=== PATIENT | female | born 1965 | race African-American/Black ===

== ENCOUNTER 2020-07-27 11:44 | Emergency (ER) | payer OTHER ==
[~2020-07-27] VITALS: Ht 182.9 cm; Wt 79.4 kg
[~2020-07-27 11:44] MED LIST: ACETAMINOPHEN-1 EAC1 ORAL; CEPHALEXIN500 MG ORAL; IBU800 MG PO; OFLOXACIN10 ML OP
[2020-07-27 11:57] VITALS: BP 152/98
--- NOTE | 2020-07-27 12:00 | NUR ---
ED Nurse Note: Patient walked in to ER requesting for a head x ray to r/o fracture. Patient missed a step and fell on her head yesterday around 5 pm. Patient presented with swollen left eye, brused. Patient AAO x4, VSS at this time, walks with steady gait.
[2020-07-27 12:20] VITALS: BP 152/98
--- NOTE | 2020-07-27 12:20 | NUR ---
ER DISCHARGE NOTE: Patient is cleared to be discharged per ERMD, pt is aox4, on room air, with stable vital signs. pt was given dc and follow up instructions, pt was able to verbalize understanding, pt id band removed without complications. pt is able to ambulate with steady gait. pt took all belongings.
--- NOTE | 2020-07-27 13:07 | Emergency Room Report ---
History of Present Illness General Chief Complaint: Head Injury Source: Patient Present Illness HPI 55-year-old female presents the ED for evaluation. Was seen here yesterday for a fall and head injury. States that she was told to come back to get another x- ray of her head. Pain is dull, 6 out of 10, nonradiating. Got stitches as well yesterday. Denies photophobia or blurry vision. No other aggravating relieving factors. Denies any other associated symptoms Allergies: Coded Allergies: ASPIRIN (Verified Allergy, Unknown, 07/26/20) COVID-19 Screening Contact w/high risk pt: No Experienced COVID-19 symptoms?: No COVID-19 Testing performed B[employer] LEADPERSON: No Patient History Past Medical History: asthma Past Surgical History: none Pertinent Family History: none Social History: Denies: smoking, alcohol use, drug use Last Menstrual Period: na Now: No Immunizations: UTD Reviewed Nursing Documentation: PMH: Agreed; PSxH: Agreed Nursing Documentation-PMH Past Medical History: No History, Except For Hx Asthma: Yes Review of Systems All Other Systems: negative except mentioned in HPI Physical Exam Vital Signs Date Time Temp Pulse Resp B/P (MAP) Pulse Ox O2 Delivery O2 Flow Rate FiO2 07/27/20 11:48 98.1 91 18 152/98 (116) 96 Room Air Sp02 EP Interpretation: reviewed, normal General Appearance: no apparent distress, alert, GCS 15, non-toxic Head: normocephalic, other - dressing over forehead Eyes: left eye other - ecchymoses/bruising L orbit; bilateral eye normal inspection, bilateral eye PERRL ENT: hearing grossly normal, normal pharynx, no angioedema, normal voice Neck: full range of motion, supple/symm/no masses Respiratory: chest non-tender, lungs clear, normal breath sounds, speaking full sentences Cardiovascular #1: regular rate, rhythm, no edema Cardiovascular #2: 2+ carotid (R), 2+ carotid (L), 2+ radial (R), 2+ radial (L) , 2+ dorsalis pedis (R), 2+ dorsalis pedis (L) Gastrointestinal: normal bowel sounds, non tender, soft, non-distended, no guarding, no rebound Rectal: deferred Genitourinary: normal inspection, no CVA tenderness Musculoskeletal: back normal, normal range of motion, gait/station normal, non- tender Neurologic: alert, motor strength/tone normal, oriented x3, sensory intact, responsive, speech normal Psychiatric: judgement/insight normal, memory normal, mood/affect normal, no suicidal/homicidal ideation Reflexes: 3+ bicep (R), 3+ bicep (L), 3+ tricep (R), 3+ tricep (L), 3+ knee (R) , 3+ knee (L) Skin: no rash Lymphatic: no adenopathy Medical Decision Making Diagnostic Impression: Primary Impression: Head injury Qualified Codes: S09.90XD - Unspecified injury of head, subsequent encounter ER Course Hospital Course 55 yo F presents to ED requesting xray head. s/p fall with head injury yesterday Clinical course Patient placed on stretcher. After initial history physical exam reveals female in no acute distress. She has ecchymosis and bruising to the left orbit. Extraocular movements intact. There is dressings to the forehead. I reviewed EMR. Patient was seen here yesterday. Had CT head and facial bones. CT head unremarkable. CT facial bones shows left orbital fracture with questionable entrapment. No entrapment clinically based on my exam I discussed with PA who saw patient yesterday. There is miscommunication. Patient was not told to come back to the ED for follow-up. Patient was given referrals to ENT for ophthalmology regarding questionable entrapment. Reassurance given. Safe for discharge close outpatient follow-up. Patient will will return in 5 to 7 days for suture removal Diagnosis - head injury Stable and discharged to home.Followup with PMD/ENT/Optho. Last Vital Signs Date Time Temp Pulse Resp B/P (MAP) Pulse Ox O2 Delivery O2 Flow Rate FiO2 07/27/20 12:20 98.1 91 18 152/98 96 Room Air Status: improved Disposition: HOME, SELF-CARE Condition: Stable Patient Instructions: Head Injury, Adult, [id number] Additional Instructions: take ibuprofen or tylenol. use ice. followup with ENT or opthalmology Gerard Anderson MD Jul 27, 2020 13:07
== END 2020-07-27 12:20 | disposition home or self-care (01) ==
LOC: EMR 11:57
DX: S09.90XA Unspecified injury of head, initial encounter (principal); S05.12XA Contusion of eyeball and orbital tissues, left eye, initial encounter; W19.XXXA Unspecified fall, initial encounter; Y92.9 Unspecified place or not applicable; Z88.6 Allergy status to analgesic agent
CPT/HCPCS: 99281

== ENCOUNTER 2020-08-04 10:08 | Emergency (ER) | payer OTHER ==
[~2020-08-04] VITALS: Ht 182.9 cm; Wt 81.6 kg
[2020-08-04 10:17] VITALS: BP 184/100
--- NOTE | 2020-08-04 10:17 | NUR ---
ED Nurse Note: Pt walked into ED from home for removal of left eyebrow stitches, pt states she had a mechanical fall on 07/26/20, she also c/o [facility] 06/22. Pt is awake alert and oriented x4. Breathing even and unlabored, BP 184/100, other vitals stable as documented.
[2020-08-04 11:37] VITALS: BP 154/82
--- NOTE | 2020-08-04 11:37 | NUR ---
ER DISCHARGE NOTE: Patient is cleared to be discharged per ERMD, pt is aox4, on room air, with stable vital signs. pt was given dc and prescription instructions, pt was able to verbalize understanding, pt id band removed without complications. pt is able to ambulate with steady gait. pt took all belongings.
== END 2020-08-04 11:37 | disposition home or self-care (01) ==
LOC: EMR 10:33
DX: Z48.02 Encounter for removal of sutures (principal)
CPT/HCPCS: 99281